=== PATIENT | male | born 1985 | race Caucasian/White ===

== ENCOUNTER 2023-01-14 18:27 | Emergency (ER) | payer SELFPAY ==
[2023-01-14 18:32] VITALS: BP 128/77; PULSE 80; RESP 18; TEMP 37.1; O2SAT 98; BMI 26.1
[2023-01-14] MEDS: ADACEL DIPH,PERTUSS(ACELL),TET VAC/PF 0.5 ML ADULT SYRINGE IM (19:00)
--- NOTE | 2023-01-14 19:03 | ED.GENADUL1 ---
Documented by User: Jessica Michaeley 01/14/23 19:10 HPI - General Adult General Chief complaint: Extremity Injury, Upper Stated complaint: FINGER INJURIES Time Seen by Provider: 01/14/23 18:56 Source: patient Mode of arrival: walk-in Limitations: no limitations History of Present Illness HPI narrative: 37-year-old male presents her with a chief complaint of a laceration to the index and thumb. He was removing part of a hero excellently caught the tip with his finger. He is not up-to-date on tetanus immunization. Superficial to cerumen initially her left him 1 cm flap to the index finger. Patient's wound is bleeding a small amount. No acute distress. Related Data Previous Rx's Medication Instructions Recorded cephalexin 500 mg capsule 500 mg PO BID 10 days #20 caps 01/14/23 ibuprofen 800 mg tablet 800 mg PO Q8H PRN pain #15 tabs 01/14/23 Allergies Allergy/AdvReac Type Severity Reaction Status Date / Time No Known Drug Allergies Allergy Verified 01/14/23 18:31 Review of Systems ROS Narrative All Systems are negative except as noted/marked.All systems reviewed and otherwise negative Exam Narrative Exam Narrative: Nurses note and vital signs reviewed and patient is not hypoxic. General: The patient appears well and in no apparent distress. Patient is resting comfortably on cart. Skin: Warm, dry, no pallor noted. There is no rash noted. Head: Normocephalic, atraumatic Eye: Normal conjunctiva, no drainage, EOMI. PERRL Musculoskeletal: 1 cm laceration left thumb, 1 cm laceration flap to left index, neurovascular intact good capillary refill. in her extremities are unremarkable. Neurological: A&O x4, normal speech Psychiatric: Cooperative Constitutional Vital Signs, click to edit/add: Last Vital Signs Temp 98.7 F 01/14/23 18:32 Pulse 80 01/14/23 18:32 Resp 18 01/14/23 18:32 BP 128/77 01/14/23 18:32 Pulse Ox 98 01/14/23 18:32 Course Vital Signs Vital signs: Vital Signs Temperature 98.7 F 01/14/23 18:32 Pulse Rate 80 01/14/23 18:32 Respiratory Rate 18 01/14/23 18:32 Blood Pressure 128/77 01/14/23 18:32 Pulse Oximetry 98 01/14/23 18:32 Temperature 98.7 F 01/14/23 18:32 Pulse Rate 80 01/14/23 18:32 Respiratory Rate 18 01/14/23 18:32 Blood Pressure 128/77 01/14/23 18:32 Pulse Oximetry 98 01/14/23 18:32 Medical Decision Making MDM Narrative Medical decision making narrative: he presented here with a superficial laceration left index and thumb. Area was cleaned with Hibiclens and saline. Patient was obtained tenderness and physician. Wound was superficial in nature and closing on its own. Dermabond was used to reapproximate the area and seal it for protection. Patient be discharged home with Keflex and follow-up with her memory care physician. Medical Records Medical records reviewed: Yes I reviewed the patient's medical records Discharge Plan Discharge Chief Complaint: Extremity Injury, Upper Clinical Impression: Laceration of finger, Glued skin wound Patient Disposition: Home, Self-Care Time of Disposition Decision: 18:57 Condition: Good Prescriptions / Home Meds: New ibuprofen 800 mg tablet 800 mg PO Q8H PRN (Reason: pain) Qty: 15 0RF cephalexin 500 mg capsule 500 mg PO BID 10 Days Qty: 20 0RF Instructions: Finger Laceration (ED) Stand Alone Forms: Portal Instructions Referrals: Javid Pro DO [Primary Care Provider] - 1 week Discharge Date/Time: 01/14/23 19:25 Documented by User: Negrito Spaulding MD 01/17/23 07:42 HPI - General Adult General Chief complaint: Extremity Injury, Upper Stated complaint: FINGER INJURIES Time Seen by Provider: 01/14/23 18:56 Related Data Previous Rx's Medication Instructions Recorded cephalexin 500 mg capsule 500 mg PO BID 10 days #20 caps 01/14/23 ibuprofen 800 mg tablet 800 mg PO Q8H PRN pain #15 tabs 01/14/23 Allergies Allergy/AdvReac Type Severity Reaction Status Date / Time No Known Drug Allergies Allergy Verified 01/14/23 18:31 Exam Constitutional Vital Signs, click to edit/add: Last Vital Signs Temp 98.7 F 01/14/23 18:32 Pulse 80 01/14/23 18:32 Resp 18 01/14/23 18:32 BP 128/77 01/14/23 18:32 Pulse Ox 98 01/14/23 18:32 Course Vital Signs Vital signs: Vital Signs Temperature 98.7 F 01/14/23 18:32 Pulse Rate 80 01/14/23 18:32 Respiratory Rate 18 01/14/23 18:32 Blood Pressure 128/77 01/14/23 18:32 Pulse Oximetry 98 01/14/23 18:32 Temperature 98.7 F 01/14/23 18:32 Pulse Rate 80 01/14/23 18:32 Respiratory Rate 18 01/14/23 18:32 Blood Pressure 128/77 01/14/23 18:32 Pulse Oximetry 98 01/14/23 18:32 Medical Decision Making MDM Narrative Medical decision making narrative: he presented here with a superficial laceration left index and thumb. Area was cleaned with Hibiclens and saline. Patient was obtained tenderness and physician. Wound was superficial in nature and closing on its own. Dermabond was used to reapproximate the area and seal it for protection. Patient be discharged home with Keflex and follow-up with her memory care physician. I, Dr Spaulding, have reviewed the above progress note and course of action in the ER; agree with the above. I have personally seen and evaluated this patient, gone over history and physical, and discussed disposition and treatment plan with the patient. Discharge Plan Discharge Chief Complaint: Extremity Injury, Upper Clinical Impression: Laceration of finger, Glued skin wound Patient Disposition: Home, Self-Care Time of Disposition Decision: 18:57 Condition: Good Prescriptions / Home Meds: New ibuprofen 800 mg tablet 800 mg PO Q8H PRN (Reason: pain) Qty: 15 0RF cephalexin 500 mg capsule 500 mg PO BID 10 Days Qty: 20 0RF Instructions: Finger Laceration (ED) Stand Alone Forms: Portal Instructions Referrals: Javid Pro DO [Primary Care Provider] - 1 week Discharge Date/Time: 01/14/23 19:25
== END 2023-01-14 19:25 | disposition home or self-care (01) ==
PROVIDERS: Emergency Provider Emergency Medicine; PCP Internal Medicine
DX: S61.211A Laceration without foreign body of left index finger without damage to nail, initial encounter (principal); S61.012A Laceration without foreign body of left thumb without damage to nail, initial encounter; W26.8XXA Contact with other sharp object(s), not elsewhere classified, initial encounter; Z23 Encounter for immunization
CPT/HCPCS: 12001; 90471; 90715; 99284